=== PATIENT | female | born 2000 | race Native Hawaiian/Other Pacific Islander ===

== ENCOUNTER 2020-11-07 00:08 | Emergency (ER) | payer OTHER ==
[~2020-11-07] VITALS: Ht 172.7 cm; Wt 65.0 kg
[2020-11-07 00:25] LABS: BILIRUBIN,URINE NEGATIVE (NEGATIVE); CLARITY,URINE SL CLOUDY; COLOR,URINE YELLOW; GLUCOSE, URINE (UA) NEGATIVE (NEGATIVE); KETONES,URINE NEGATIVE (NEGATIVE); LEUKOCYTE ESTERASE ,URINE 2+ (NEGATIVE); NITRITE,URINE NEGATIVE (NEGATIVE); PH,URINE 6.5 (5-9); PROTEIN,URINE NEGATIVE (NEGATIVE)
[2020-11-07 00:33] LABS: BACTERIA,URINE FEW /HPF
[2020-11-07] MEDS ORDERED: DOXY100T2 PO (01:00)
[2020-11-07] MEDS ORDERED: LIDOCAINE 1% INJ 20 ML 20 ML VIAL INJ ONE (01:00)
[2020-11-07] MEDS ORDERED: AZITHROMYCIN 250 MG TAB (ZITHROMAX) PO ONE (01:00)
[2020-11-07] MEDS ORDERED: cefTRIAXone 1,000 MG VIAL IM ONE (01:00)
[2020-11-07] MEDS ORDERED: FLUCONAZOLE 150 MG TABLET (ED ONLY) PO ONE (01:00)
[2020-11-07] MEDS ORDERED: FLUC200T PO (01:00)
--- NOTE | 2020-11-07 01:01 | ED GU-Female ---
General Chief Complaint: - Reproductive Stated Complaint: POSS YEAST INFECTION / VAGINAL PAIN Source: patient History of Present Illness Date Seen by Provider: Nov 07, 2020 Time Seen by Provider: 00:18 Initial Comments PT ARRIVES VIA POV PT STATES SHE THINKS SHE HAS A YEAST INFECTION C/O VAGINAL PAIN AND BURNING SINCE Sunday11/05/20 ALSO HAS HAD VAGINAL DISCHARGE--GREEN IN COLOR C/O ALOT OF BURNING ON URINATION SLIGHT LOWER ABDOMINAL DISCOMFORT SLIGHT NAUSEA, NO VOMITING NO DIARRHEA OR CONSTIPATION NO FEVER USED MONISTAT X1 YESTERDAY, NO RELIEF. 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 NO CHRONIC MEDICAL PROBLEMS LMP--NONE, HAS IUD IN PLACE PT IS [employer] STUD[employer] FROM [place], [place] Allergies and Home Medications Allergies Coded Allergies: No Known Drug Allergies (Unverified , 11/07/20) Patient Home Medication List Home Medication List Reviewed: Yes Doxycycline Hyclate (Doxycycline Hyclate) 100 Mg Tablet, 100 MG PO BID Prescribed by: CHAPIS MARTIN on 11/07/20 010 Fluconazole (Diflucan) 200 Mg Tablet, 200 MG PO DAILY Prescribed by: CHAPIS MARTIN on 11/07/20 010 Review of Systems Review of Systems Constitutional: no symptoms reported Respiratory: no symptoms reported Cardiovascular: no symptoms reported Gastrointestinal: see HPI Genitourinary: see HPI : No Musculoskeletal: no symptoms reported Skin: no symptoms reported Psychiatric/Neurological: No Symptoms Reported Endocrine: No Symptoms Reported Hematologic/Lymphatic: No Symptoms Reported Past Bvbamka-Vevpuh-Poqefn Hx Patient Social History Tobacco Use?: No Use of E-Cig and/or Vaping dev: No Substance use?: No Alcohol Use?: Yes Alcohol type: Beer, Hard Liquor, Wine Alcohol Frequency: Several times a month Pt feels they are or have been: No Immunizations Up To Date Influenza Vaccine Up-to-Date: No; Not Current First/Initial COVID19 Vaccinat: 10/19/20 Second COVID19 Vaccination Lorenzo: 11/09 COVID19 Vaccine 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: [employer] Past Medical History Surgery/Hospitalization HX: RIGHT SHOULDER/LABRUM REPAIR LEFT ELBOW/ULNAR COLLATERAL LIGAMENT REPAIR Surgeries: Yes Orthopedic Respiratory: No Cardiac: No Neurological: No Reproductive Disorders: No Genitourinary: No Gastrointestinal: No Musculoskeletal: Yes (RIGHT SHOULDER SURGERY; LEFT ELBOW SURGERY) Endocrine: No HEENT: No Cancer: No Psychosocial: No Integumentary: No Blood Disorders: No Physical Exam Vital Signs Vital Signs - First Documented 11/07/20 00:15 Temp 37.4 Pulse 87 Resp 18 B/P (MAP) 116/89 (98) Pulse Ox 100 O2 Delivery Room Air Capillary Refill : Height, Weight, BMI Height: '" Weight: lbs. oz. kg; BMI Method: General Appearance: WD/WN, no apparent distress Cardiovascular: regular rate, rhythm, no murmur Respiratory: normal breath sounds Gastrointestinal: soft, tenderness (MILD SUPRAPUBIC TENDERNESS) Pelvic: discharge; No lesions, No mass, No tender w/ cervical motion; tender ut erus, other (ERYTHEMA TO INTROITUS, WITH THICK WHITE DISCHARGE AT INTROITUS. VAGINA AND CERVIX VERY INFLAMED, WITH COPIOUS AMOUNT OF THICK , CLUMPY, WHITE AND GREEN AND YELLOW DISCHARGE) Back: normal inspection, no CVA tenderness Extremities: normal inspection Neurologic/Psychiatric: no motor/sensory deficits, alert, normal mood/affect, oriented x 3 Skin: normal color, warm/dry; No rash Progress/Results/Core Measures Suspected Sepsis SIRS Temperature: Pulse: Respiratory Rate: Blood Pressure / Mean: Results/Orders Lab Results Laboratory Tests Test 11/07/20 00:18 11/07/20 00:55 Range/Units Urine Color YELLOW Urine Clarity SL CLOUDY Urine pH 6.5 5-9 Urine Specific [place] 1.015 L 1.016-1.022 Urine Protein NEGATIVE NEGATIVE Urine Glucose (UA) NEGATIVE NEGATIVE Urine Ketones NEGATIVE NEGATIVE Urine Nitrite NEGATIVE NEGATIVE Urine Bilirubin NEGATIVE NEGATIVE Urine Urobilinogen 0.2 < = 1.0 MG/DL Urine Leukocyte Esterase 2+ H NEGATIVE Urine RBC (Auto) NEGATIVE NEGATIVE Urine RBC NONE /HPF Urine WBC 5-10 H /HPF Urine Squamous Epithelial Cells 2-5 /HPF Urine Crystals NONE /LPF Urine Bacteria FEW H /HPF Urine Casts NONE /LPF Urine Mucus LARGE H /LPF Urine Culture Indicated YES My Orders Orders - CHAPIS MARTIN DO Urine Bedside (11/07/20 00:18) Ua Culture If Indicated (11/07/20 00:18) Urine Culture (11/07/20 00:18) Neisseria Gonorrhea Swab (11/07/20 00:46) Chlam Dna Probe (11/07/20 00:46) Genital Culture (11/07/20 00:46) Wet Prep (11/07/20 00:46) Jose Prep (11/07/20 00:46) Fluconazole Tablet (Ed Only) (Diflucan T (11/07/20 01:00) Ceftriaxone (Rocephin) (11/07/20 01:00) Lidocaine 1% Inj 20 Ml (Xylocaine 1% Inj (11/07/20 01:00) Azithromycin Tablet (Zithromax Tablet) (11/07/20 01:00) Medications Given in ED Current Medications Medications Dose Ordered Sig/Hardeep Route Start Time Stop Time Status Last Admin Dose Admin Azithromycin 500 mg ONCE ONCE PO 11/07/20 01:00 11/07/20 01:01 DC 11/07/20 01:08 500 MG Ceftriaxone Sodium 1,000 mg ONCE ONCE IM 11/07/20 01:00 11/07/20 01:01 DC 11/07/20 01:02 1,000 MG Fluconazole 150 mg ONCE ONCE PO 11/07/20 01:00 11/07/20 01:01 DC 11/07/20 01:08 150 MG Lidocaine HCl 2.1 ml ONCE ONCE INJ 11/07/20 01:00 11/07/20 01:01 DC 11/07/20 01:02 2.1 ML Vital Signs/I&O 11/07/20 11/07/20 00:15 01:16 Temp 37.4 Pulse 87 76 Resp 18 18 B/P (MAP) 116/89 (98) 108/74 Pulse Ox 100 100 O2 Delivery Room Air Room Air Capillary Refill : Departure Impression Primary Impression: Vaginitis Additional Impression: UTI (urinary tract infection) Disposition: 01 HOME, SELF-CARE Condition: Stable Departure-Patient Inst. Decision time for Depature: 00:55 Referrals: NO,LOCAL PHYSICIAN (PCP) Primary Care Physician KATHERINE SUMMERS MD Patient Instructions: STD Prevention, Urinary Tract Infection, Adult (DC), Vaginitis Add. Discharge Instructions: TYLENOL AND MOTRIN NEEDED FOR PAIN LOTS OF CLEAR LIQUIDS--NO COFFEE, POP OR TEA NO INTERCOURSE OF ANY KIND UNTIL YOU ARE RECHECKED AND CLEARED BY FOLLOW UP WITH [facility] CLINIC IN 5-7 DAYS FOR RECHECK All discharge instructions reviewed with patient and/or family. Voiced understanding. Scripts Doxycycline Hyclate (Doxycycline Hyclate) 100 Mg Tablet 100 MG PO BID, #20 TAB 0 Refills Prov: CHAPIS MARTIN DO 11/07/20 Fluconazole (Diflucan) 200 Mg Tablet 200 MG PO DAILY, #5 TAB Prov: CHAPIS MARTIN DO 11/07/20 CHAPIS MARTIN DO Nov 07, 2020 01:00
[2020-11-07 01:16] VITALS: BP 108/74
== END 2020-11-07 01:11 | disposition home or self-care (01) ==
LOC: ER 00:13
DX: N76.0 Acute vaginitis (principal); N39.0 Urinary tract infection, site not specified
CPT/HCPCS: 36415; 81000; 84703; 87070; 87088; 87205; 87210; 87220; 87491; 87591; 99284

== ENCOUNTER 2021-03-26 21:30 | Emergency (ER) | payer OTHER ==
[~2021-03-26] VITALS: Ht 172 cm; Wt 63.5 kg
[~2021-03-26 21:30] MED LIST: DOXY100T2 PO; FLUC200T PO
[2021-03-26] MEDS ORDERED: LORazepam INJ 2 MG/ML (ATIVAN) VIAL IVP STA (22:05)
--- NOTE | 2021-03-26 22:11 | ED General ---
General Stated Complaint: ALLERGIC REACTION TO PEANUTE BUTTER Source of Information: Patient, Other (friend) Exam Limitations: No Limitations History of Present Illness Date Seen by Provider: Mar 26, 2021 Time Seen by Provider: 21:58 Initial Comments Patient is a 20-year-old female who presents to the emergency department with a chief complaint of panic/anxiety after eating something that contained peanut butter at about 830 this evening. Patient states that she was able to get it out of her mouth and rinse her mouth however since that time she has felt like her chest is heavy, she feels short of breath. She has had prior allergic reaction back when she was in the eighth grade that required hospitalization. She did not have her EpiPen as their animal attendants and trainers has it in [place]. Patient denies any current rashes although the friend who is present with her at the bedside states that she did get quite red but this resolved. She was given 2 Benadryl prior to arrival. No vomiting. Friend at the bedside states that she "passed out" 3 times since eating the peanut butter. She does have some alcohol on board but cannot quantify how much. She does not appear significantly intoxicated on physical examination. No other complaints of recent illness or injury. She states she has not taken her nightly dose of Lexapro for her anxiety this evening. All other review of systems reviewed and negative except as stated. Timing/Duration: 1-3 Hours Severity: Moderate Associated Systoms: Chest Pain ("heaviness"), Syncope, Weakness Allergies and Home Medications Allergies Coded Allergies: No Known Drug Allergies (Unverified , 11/07/20) Patient Home Medication List Home Medication List Reviewed: Yes Doxycycline Hyclate (Doxycycline Hyclate) 100 Mg Tablet, 100 MG PO BID Prescribed by: CHAPIS MARTIN on 11/07/20 010 Epinephrine (Epipen 2-Jatinder) 0.3 Mg/0.3 Ml Auto.injct, 0.3 MG IJ NEEDED Prescribed by: ADIS HANKINS on 03/26/212213 Fluconazole (Diflucan) 200 Mg Tablet, 200 MG PO DAILY Prescribed by: CHAPIS MARTIN on 11/07/2099 Prednisone (Prednisone) 50 Mg Tab, 50 MG PO DAILY Prescribed by: ADIS HANKINS on 03/26/212213 Review of Systems Review of Systems Constitutional: see HPI, other (anxiety) EENTM: no symptoms reported Respiratory: short of breath Cardiovascular: chest pain ("heaviness") Gastrointestinal: no symptoms reported Genitourinary: no symptoms reported Musculoskeletal: no symptoms reported Skin: rash (currenly resolved) Psychiatric/Neurological: Anxiety All Other Systems Reviewed Negative Unless Noted: Yes Past Twryuuc-Wiujel-Vnjpzi Hx Immunizations Up To Date First/Initial COVID19 Vaccinat: 10/19/20 Second COVID19 Vaccination Lorenzo: 11/09 Past Medical History Surgery/Hospitalization HX: RIGHT SHOULDER/LABRUM REPAIR LEFT ELBOW/ULNAR COLLATERAL LIGAMENT REPAIR Surgeries: Yes Orthopedic Respiratory: No Cardiac: No Neurological: No Reproductive Disorders: No Genitourinary: No Gastrointestinal: No Musculoskeletal: Yes (RIGHT SHOULDER SURGERY; LEFT ELBOW SURGERY) Endocrine: No HEENT: No Cancer: No Psychosocial: No Integumentary: No Blood Disorders: No Physical Exam Vital Signs Vital Signs - First Documented Capillary Refill : Height, Weight, BMI Height: '" Weight: lbs. oz. kg; 21.00 BMI Method: General Appearance: WD/WN, Anxious Eyes: Bilateral Eye Normal Inspection, Bilateral Eye PERRL, Bilateral Eye EOMI, Bilateral Eye Other (injected sclerae) HEENT: PERRL/EOMI, Pharynx Normal, Other (no intraoral swelling) Neck: Full Range of Motion, Normal Inspection, Non Tender, Supple Respiratory: Lungs Clear, Normal Breath Sounds, No Accessory Muscle Use, No Respiratory Distress, Other (labored breathing/slight hyperventilation) Cardiovascular: Regular Rate, Rhythm, Tachycardia (111 bpm) Gastrointestinal: Non Tender, Soft Extremity: Normal Capillary Refill, Normal Inspection, Normal Range of Motion, Non Tender, No Pedal Edema Neurologic/Psychiatric: Alert, Oriented x3, No Motor/Sensory Deficits, Other (anxious) Skin: Normal Color, Warm/Dry Progress/Results/Core Measures Suspected Sepsis SIRS Temperature: Pulse: Respiratory Rate: Blood Pressure / Mean: Results/Orders My Orders Orders - ADIS HANKINS MD Methylprednisolone Sod Succ (Solu-Medrol (03/26/21 22:15) Famotidine Injection (Pepcid Injection) (03/26/21 22:15) Lorazepam Injection (Ativan Injection) (03/26/21 22:05) Medications Given in ED Current Medications Medications Dose Ordered Sig/Haredep Route Start Time Stop Time Status Last Admin Dose Admin Famotidine 20 mg ONCE ONCE IVP 03/26/21 22:15 03/26/21 22:16 DC 03/26/21 22:22 20 MG Methylprednisolone Sodium Succinate 125 mg ONCE ONCE IVP 03/26/21 22:15 03/26/21 22:16 DC 03/26/21 22:20 125 MG Vital Signs/I&O 03/26/21 03/26/21 21:48 21:48 Temp 36.5 Pulse 107 Resp 22 B/P (MAP) 143/110 (121) Pulse Ox 100 O2 Delivery Room Air Room Air Capillary Refill : Progress Note #1: Time: 22:09 Progress Note Patient is obviously anxious, will treat with a half a milligram of Ativan. She will also be given 20 mg of Pepcid and 120 with 5 mg of Solu-Medrol IV. She is already had Benadryl. She is slightly tachycardic, not hypotensive. She is not wheezing or in any respiratory distress. Her oxygen saturations are 99% on room air. Slightly tachycardic at 111. I think about an hour of monitoring and we will be safe to let her go home. We will send her home with some prednisone and a refill of her EpiPen. Progress Note #2: Time: 22:52 Progress Note Patient monitored for approximately an hour after medications. She is feeling better, much more calm. No evolving signs of allergy/anaphylaxis. Sent home with prednisone as well as EpiPen. Return precautions noted. Departure Impression Primary Impression: Allergic reaction to peanut Disposition: 01 HOME, SELF-CARE Condition: Stable Departure-Patient Inst. Decision time for Depature: 22:10 Referrals: NO,LOCAL PHYSICIAN (PCP) Primary Care Physician KATHERINE SUMMERS MD Patient Instructions: Peanut Allergy Add. Discharge Instructions: Take the prednisone daily for the next 3 days. You should also take [id number] Pepcid, 20 mg once a day for the next 3 days. This is available at [employer] or [employer]. If you have a recurrence of any concerning symptoms you can take more Benadryl. 1 to 2 tablets every 6 hours If you notice that you have mouth swelling, increasing shortness of breath or other concerning symptoms please come back to the emergency department for reevaluation. I have also refilled your EpiPen. Scripts Epinephrine (Epipen 2-Jatinder) 0.3 Mg/0.3 Ml Auto.injct 0.3 MG IJ NEEDED PRN for allergic reaction, #1 ML Prov: ADIS HANKINS MD 03/26/21 Prednisone (Prednisone) 50 Mg Tab 50 MG PO DAILY for 3 Days, #3 TAB Prov: ADIS HANKINS MD 03/26/21 ADIS HANKINS MD Mar 26, 2021 22:11
[2021-03-26] MEDS ORDERED: PRD50T PO ×2 (22:14→23:10)
[2021-03-26] MEDS ORDERED: EPIN0.3P3 IJ ×2 (22:14→23:10)
[2021-03-26] MEDS ORDERED: FAMOTIDINE 20MG/2ML IV (PEPCID) IVP ONE (22:15)
[2021-03-26] MEDS ORDERED: methylPREDNISolone 125 MG (Solu-MEDROL) VIAL IVP ONE (22:15)
[2021-03-26 23:12] VITALS: BP 125/61
== END 2021-03-26 23:12 | disposition home or self-care (01) ==
LOC: EDUNIT# 21:30 → ER 21:34
DX: T78.1XXA Other adverse food reactions, not elsewhere classified, initial encounter (principal)

== ENCOUNTER 2021-12-15 18:57 | Emergency (ER) | payer OTHER ==
[~2021-12-15 18:57] MED LIST changes: +EPIN0.3P3 IJ; +PRD50T PO
--- NOTE | 2021-12-15 19:22 | ED Lower Extremity ---
General Chief Complaint: Lower Extremity Stated Complaint: [place] AT [place] [facility] Nursing Triage Note: PT ARRIVAL TO ER VIA PRIVATE VEHICLE WITH COMPLAINT OF LOWER RIGHT LEG INJURY. 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 SWELLING AND BRUISING PRESENT. PAINFUL WITH WALKING AND AT REST. PAIN AT A 5/10. DESCRIBED UNCOMFORTABLE PAIN. (FIONA BELL APRN) History of Present Illness Date Seen by Provider: Dec 15, 2021 Time Seen by Provider: 19:17 Initial Comments Patient presents to the emergency department for right lower leg pain and injury. Reports that she was batting today at practice and hit a ball and it immediately hit her in the right lower leg. C/O swelling, bruising and pain to the area since that time. Has had difficulty walking on right lower extremity due to the pain. Denies any other injuries. Took Ibuprofen about hour and half prior to arrival. Onset: just prior to arrival Pain/Injury Location: right leg (right anterior lower leg) Method of Injury: direct blow Modifying Factors: Improves With Cold Therapy, Improves With Immobilization; Worse With Movement; Improves With Rest (FIONA BELL APRN) Allergies and Home Medications Allergies Coded Allergies: No Known Drug Allergies (Unverified , 11/07/20) Patient Home Medication List Home Medication List Reviewed: Yes (FIONA BELL APRN) Doxycycline Hyclate (Doxycycline Hyclate) 100 Mg Tablet, 100 MG PO BID Prescribed by: CHAPIS MARTIN on 11/07/2099 Epinephrine (Epipen 2-Jatinder) 0.3 Mg/0.3 Ml Auto.injct, 0.3 MG IJ NEEDED PRN for allergic reaction Prescribed by: ADIS HANKINS on 03/26/212309 Fluconazole (Diflucan) 200 Mg Tablet, 200 MG PO DAILY Prescribed by: CHAPIS MARTIN on 11/07/2099 Hydrocodone Bit/Acetaminophen (HYDROcodone/APAP 5 MG/325 MG TAB) 1 Tab Tab, 1 TAB PO Q6H Prescribed by: Fiona Bell on 12/15/212010 Prednisone (Prednisone) 50 Mg Tab, 50 MG PO DAILY Prescribed by: ADIS HANKINS on 03/26/212309 Review of Systems Constitutional: no symptoms reported Respiratory: no symptoms reported Cardiovascular: no symptoms reported Gastrointestinal: no symptoms reported Musculoskeletal: joint pain (right lower extremity), joint swelling (right lower extremity) Skin: other (bruising to right lower extremity) (FIONA BELL APRN) All Other Systems Reviewed Negative Unless Noted: Yes (FIONA BELL APRN) Past Lvletgj-Vwzmsy-Yssyzp Hx Patient Social History Tobacco Use?: No Use of E-Cig and/or Vaping dev: No Substance use?: No Alcohol Use?: Yes Alcohol type: Beer, Hard Liquor Alcohol Frequency: Several times a month Pt feels they are or have been: No (FIONA BELL APRN) Immunizations Up To Date Influenza Vaccine Up-to-Date: Yes; Up-to-Date First/Initial COVID19 Vaccinat: 10/19/2020 Second COVID19 Vaccination Lorenzo: 09/08 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 SURGICAL;ACL SURGERY 02/07. Surgeries: Yes Orthopedic Respiratory: No Cardiac: No Neurological: No Reproductive Disorders: No Genitourinary: No Gastrointestinal: No Musculoskeletal: Yes (RIGHT SHOULDER SURGERY; LEFT ELBOW SURGERY) Endocrine: No HEENT: No Cancer: No Psychosocial: No Integumentary: No Blood Disorders: No (FIONA BELL APRN) Family Medical History Reviewed Nursing Family Hx (FIONA BELL APRN) Physical Exam Vital Signs Vital Signs - First Documented 12/15/21 19:11 Temp 37.0 Pulse 83 Resp 16 B/P (MAP) 152/80 (104) Pulse Ox 100 O2 Delivery Room Air (LISA CRUM MD) Vital Signs Capillary Refill : Less Than 3 Seconds (FIONA BELL APRN) Height, Weight, BMI Height: '" Weight: lbs. oz. kg; 21.00 BMI Method: General Appearance: WD/WN, no apparent distress Legs: right leg bone tenderness, right leg ecchymosis, right leg pain, right leg soft tissue tenderness, right leg swelling (right lower anterior leg) Ankles: right ankle non-tender, right ankle normal inspection, right ankle normal range of motion Neurologic/Psychiatric: alert, normal mood/affect, oriented x 3 Skin: warm/dry, ecchymosis (right lower anterior leg just superior to the ankle) (FIONA BELL APRN) Progress/Results/Core Measures Results/Orders Vital Signs/I&O 12/15/21 12/15/21 12/15/21 19:11 19:28 20:27 Temp 37.0 37.0 37.0 Pulse 83 83 Resp 16 16 B/P (MAP) 152/80 (104) 152/80 Pulse Ox 100 100 O2 Delivery Room Air Room Air (LISA CRUM MD) Blood Pressure Mean: 104 Progress Progress Note : Progress Note Patient arrives to department with obvious injury to right lower leg. Limping, bruising and swelling. Will obtain XR. 2004: XR was negative for fracture. Will send home with Hydrocodone to take as needed for pain. Narcotic warning instructions were discussed with patient along with reasons to return to the ER. Crutches were given to assist with ambulation. (FIONA BELL APRN) Diagnostic Imaging Diagonstic Imaging: Xray Plain Films/CT/US/NM/MRI: leg Comments NAME: VALERIA FISHER [facility] REC#: [id number] PT STATUS: REG ER : 2000 PHYSICIAN: FIONA BELL APRN ADMIT DATE: 12/15/21/ER Signed Date of Exam:12/15/21 TIBIA/FIBULA, RIGHT, 2 VIEWS INDICATION: Right lower leg pain. Hit by a softball. FINDINGS: There is no finding of cortical disruption or fracture. There is no suspicious bone lesion. There is no focal soft tissue abnormality evident. IMPRESSION: Negative radiographs of the right lower leg. Dictated by: Dictated on workstation # [id number] Dict: 12/15/211945 Trans: 12/15/211952 [facility] [id number] Interpreted by: BHAVESH MAX MD Electronically signed by: BHAVESH MAX MD 12/15/211952 (FIONA BELL APRN) Departure Impression Primary Impression: Contusion of leg, right Qualified Codes: S80.11XA - Contusion of right lower leg, initial encounter Disposition: 01 HOME, SELF-CARE Condition: Stable Departure-Patient Inst. Decision time for Depature: 20:09 (FIONA BELL APRN) Referrals: NO,LOCAL PHYSICIAN (PCP/Family) Primary Care Physician Patient Instructions: Contusion (DC) Add. Discharge Instructions: 1. Home and rest. 2. Push fluids. 3. Alternate Tylenol/Ibuprofen as needed for pain. 4. Hydrocodone as needed for severe pain. This medication can cause constipation so consider taking a stool softner while on this medication. NO driving while taking this medication. 5. Follow up with PCP as needed. 6. Weight bearing as tolerated. 7. Ice and elevate. 8. Return here if worse or concerns. All discharge instructions reviewed with patient and/or family. Voiced understanding. Scripts Hydrocodone Bit/Acetaminophen (HYDROcodone/APAP 5 MG/325 MG TAB) 1 Tab Tab 1 TAB PO Q6H for Pain, #10 TAB 0 Refills Prov: FIONA BELL APRN 12/15/21 ATTENDING PHYSICIAN NOTE: I was physically present as attending physician in the emergency department during the care of this patient, but I was not directly involved in the decision making or delivery of care for this patient. (LISA CRUM MD) FIONA BELL APRN Dec 15, 2021 19:22 LISA CRUM MD Dec 17, 2021 09:24
[2021-12-15] MEDS ORDERED: HYDROcodone/APAP 5 MG/325 MG (LORTAB) TAB PO ONE (19:30)
--- NOTE | 2021-12-15 19:50 | Diagnostic Imaging Report ---
INDICATION: Right lower leg pain. Hit by a softball. FINDINGS: There is no finding of cortical disruption or fracture. There is no suspicious bone lesion. There is no focal soft tissue abnormality evident. IMPRESSION: Negative radiographs of the right lower leg. Dictated by: Dictated on workstation # [id number]
[2021-12-15] MEDS ORDERED: ACHD5005 PO (20:11)
[2021-12-15 20:27] VITALS: BP 152/80
== END 2021-12-15 20:27 | disposition home or self-care (01) ==
LOC: EDUNIT# 18:57 → ER 18:59
DX: S80.11XA Contusion of right lower leg, initial encounter (principal); W21.07XA Struck by softball, initial encounter; Y93.64 Activity, baseball
CPT/HCPCS: 73590

== ENCOUNTER 2022-10-16 21:03 | Emergency (ER) | payer OTHER ==
[~2022-10-16] VITALS: Ht 172 cm; Wt 61.0 kg
[~2022-10-16 21:03] MED LIST changes: +ACHD5005 PO
[2022-10-16] MEDS ORDERED: ONDANSETRON INJECTION 4 MG/2 ML (SDV) IVP ONE (21:30)
[2022-10-16] MEDS ORDERED: LACTATED RINGERS 1,000 ML 1,000 ML IV ONE (21:30)
[2022-10-16 21:33] LABS: BASOPHILS # (AUTO) 0.1 10^3/uL (0.0-0.1); BASOPHILS % (AUTO) 1 % (0-10); EOSINOPHILS # (AUTO) 0.4 10^3/uL (0.0-0.3); EOSINOPHILS % (AUTO) 6 % (0-10); HEMATOCRIT 38 % (35-52); HEMOGLOBIN 12.9 g/dL (11.5-16.0); LYMPHOCYTES # (AUTO) 2.6 10^3/uL (1.0-4.0); LYMPHOCYTES % (AUTO) 35 % (12-44); MEAN CORPUSCULAR HEMOGLOBIN 30 pg (25-34); MEAN CORPUSCULAR HGB CONC 34 g/dL (32-36); MEAN CORPUSCULAR VOLUME 87 fL (80-99); MEAN PLATELET VOLUME 11.1 fL (9.0-12.2); MONOCYTES # (AUTO) 0.6 10^3/uL (0.0-1.0); MONOCYTES % (AUTO) 8 % (0-12); NEUTROPHILS # (AUTO) 3.7 10^3/uL (1.8-7.8); NEUTROPHILS % (AUTO) 50 % (42-75); PLATELET COUNT 187 10^3/uL (130-400); WHITE BLOOD COUNT 7.4 10^3/uL (4.3-11.0)
[2022-10-16 21:37] VITALS: BP_SYST 123; BP_SYST 130; BP_SYST 142; BP_DIAS 78; BP_DIAS 93; BP_DIAS 97
[2022-10-16 21:50] LABS: BACTERIA,URINE FEW /HPF; BILIRUBIN,URINE NEGATIVE (NEGATIVE); CLARITY,URINE CLEAR; COLOR,URINE YELLOW; GLUCOSE, URINE (UA) NEGATIVE (NEGATIVE); KETONES,URINE NEGATIVE (NEGATIVE); LEUKOCYTE ESTERASE ,URINE TRACE (NEGATIVE); NITRITE,URINE NEGATIVE (NEGATIVE); PH,URINE 5.5 (5-9); PROTEIN,URINE NEGATIVE (NEGATIVE); RBC,URINE RARE /HPF; WBC,URINE RARE /HPF
[2022-10-16 22:03] LABS: AMPHETAMINE SCREEN, URINE NEGATIVE (NEGATIVE); BARBITURATE SCREEN URINE NEGATIVE (NEGATIVE); BENZODIAZEPINES SCREEN URINE NEGATIVE (NEGATIVE); CANNABINOID SCREEN, URINE NEGATIVE (NEGATIVE); COCAINE SCREEN URINE NEGATIVE (NEGATIVE); METHADONE STAT NEGATIVE (NEGATIVE); OPIATE SCREEN URINE NEGATIVE (NEGATIVE); OXYCODONE STAT NEGATIVE (NEGATIVE); PROPOXYPHENE STAT NEGATIVE (NEGATIVE); TRICYCLIC ANTIDEPRESSANTS SCRE NEGATIVE (NEGATIVE)
[2022-10-16 22:04] LABS: ALANINE AMINOTRANSFERASE 19 U/L (0-55); ALBUMIN 4.5 GM/DL (3.2-4.5); ALKALINE PHOSPHATASE 99 U/L (40-136); BILIRUBIN,TOTAL 0.3 MG/DL (0.1-1.0); BUN/CREATININE RATIO 18; CALCIUM 8.9 MG/DL (8.5-10.1); CARBON DIOXIDE 21 MMOL/L (21-32); CHLORIDE 106 MMOL/L (98-107); GFR ESTIMATED 107; GLUCOSE 88 MG/DL (70-105); MAGNESIUM 2.1 MG/DL (1.6-2.4); POTASSIUM 3.5 MMOL/L (3.6-5.0); SODIUM 139 MMOL/L (135-145)
[2022-10-16 22:24] LABS: TSH (THYROID ANALYZER) 3.58 UIU/ML (0.35-4.94)
--- NOTE | 2022-10-16 22:59 | ED Syncope ---
General Chief Complaint: Dizziness/Syncope Stated Complaint: FALL/HIT HEAD Nursing Triage Note: PT STATES SHE PASSED OUT AROUND 2019, STATES SHE FELT HERSELF GETTING DIZZY AND LEANED ON THE WALL, FELL AND HIT HEAD ON FLOOR. Source of Information: Patient Allergies and Home Medications Allergies Coded Allergies: No Known Drug Allergies (Unverified , 11/07/20) Patient Home Medication List Doxycycline Hyclate (Doxycycline Hyclate) 100 Mg Tablet, 100 MG PO BID Prescribed by: CHAPIS MARTIN on 11/07/2099 Epinephrine (Epipen 2-Jatinder) 0.3 Mg/0.3 Ml Auto.injct, 0.3 MG IJ NEEDED PRN for allergic reaction Prescribed by: ADIS HANKINS on 03/26/212309 Fluconazole (Diflucan) 200 Mg Tablet, 200 MG PO DAILY Prescribed by: CHAPIS MARTIN on 11/07/2099 Hydrocodone Bit/Acetaminophen (HYDROcodone/APAP 5 MG/325 MG TAB) 1 Tab Tab, 1 TAB PO Q6H Prescribed by: Fiona Ambrocio on 12/15/212010 Prednisone (Prednisone) 50 Mg Tab, 50 MG PO DAILY Prescribed by: ADIS HANKINS on 03/26/212309 Past Eixwwqr-Vqzata-Oqvsxa Hx Patient Social History Tobacco Use?: No Substance use?: No Alcohol Use?: Yes Alcohol Frequency: Once in a while Immunizations Up To Date First/Initial COVID19 Vaccinat: 09/08 Second COVID19 Vaccination Lorenzo: 09/08 Third COVID19 Vaccination Date: 09/08 Past Medical History Surgery/Hospitalization HX: PMH;ANXIETY. SURGICAL;ACL SURGERY 02/07. Surgeries: Yes Orthopedic Respiratory: No Cardiac: No Neurological: No Reproductive Disorders: No Genitourinary: No Gastrointestinal: No Musculoskeletal: Yes (RIGHT SHOULDER SURGERY; LEFT ELBOW SURGERY) Endocrine: No HEENT: No Cancer: No Psychosocial: No Integumentary: No Blood Disorders: No Physical Exam Vital Signs Vital Signs - First Documented 10/16/22 21:14 Temp 37.6 Pulse 88 Resp 18 B/P (MAP) 137/86 (103) Pulse Ox 99 Capillary Refill : Height, Weight, BMI Height: '" Weight: lbs. oz. kg; 20.00 BMI Method: Progress/Results/Core Measures Results/Orders Lab Results Laboratory Tests Test 10/16/22 21:21 10/16/22 21:28 10/16/22 21:50 Range/Units Urine Color YELLOW Urine Clarity CLEAR Urine pH 5.5 5-9 Urine Specific Berry 1.015 L 1.016-1.022 Urine Protein NEGATIVE NEGATIVE Urine Glucose (UA) NEGATIVE NEGATIVE Urine Ketones NEGATIVE NEGATIVE Urine Nitrite NEGATIVE NEGATIVE Urine Bilirubin NEGATIVE NEGATIVE Urine Urobilinogen 0.2 < = 1.0 MG/DL Urine Leukocyte Esterase TRACE H NEGATIVE Urine RBC (Auto) TRACE H NEGATIVE Urine RBC RARE /HPF Urine WBC RARE /HPF Urine Squamous Epithelial Cells 5-10 /HPF Urine Crystals NONE /LPF Urine Bacteria FEW H /HPF Urine Casts NONE /LPF Urine Mucus SMALL H /LPF Urine Culture Indicated NO Urine Opiates Screen NEGATIVE NEGATIVE Urine Oxycodone Screen NEGATIVE NEGATIVE Urine Methadone Screen NEGATIVE NEGATIVE Urine Propoxyphene Screen NEGATIVE NEGATIVE Urine Barbiturates Screen NEGATIVE NEGATIVE Ur Tricyclic Antidepressants Screen NEGATIVE NEGATIVE Urine Phencyclidine Screen NEGATIVE NEGATIVE Urine Amphetamines Screen NEGATIVE NEGATIVE Urine Methamphetamines Screen NEGATIVE NEGATIVE Urine Benzodiazepines Screen NEGATIVE NEGATIVE Urine Cocaine Screen NEGATIVE NEGATIVE Urine Cannabinoids Screen NEGATIVE NEGATIVE White Blood Count 7.4 4.3-11.0 10^3/uL Red Blood Count 4.36 3.80-5.11 10^6/uL Hemoglobin 12.9 11.5-16.0 g/dL Hematocrit 38 35-52 % Mean Corpuscular Volume 87 80-99 fL Mean Corpuscular Hemoglobin 30 25-34 pg Mean Corpuscular Hemoglobin Concent 34 32-36 g/dL Red Cell Distribution Width 12.6 10.0-14.5 % Platelet Count 187 130-400 10^3/uL Mean Platelet Volume 11.1 9.0-12.2 fL Immature Granulocyte % (Auto) 0 % Neutrophils (%) (Auto) 50 42-75 % Lymphocytes (%) (Auto) 35 12-44 % Monocytes (%) (Auto) 8 0-12 % Eosinophils (%) (Auto) 6 0-10 % Basophils (%) (Auto) 1 0-10 % Neutrophils # (Auto) 3.7 1.8-7.8 10^3/uL Lymphocytes # (Auto) 2.6 1.0-4.0 10^3/uL Monocytes # (Auto) 0.6 0.0-1.0 10^3/uL Eosinophils # (Auto) 0.4 H 0.0-0.3 10^3/uL Basophils # (Auto) 0.1 0.0-0.1 10^3/uL Immature Granulocyte # (Auto) 0.0 0.0-0.1 10^3/uL Sodium Level 139 135-145 MMOL/L Potassium Level 3.5 L 3.6-5.0 MMOL/L Chloride Level 106 98-107 MMOL/L Carbon Dioxide Level 21 21-32 MMOL/L Anion Gap 12 5-14 MMOL/L Blood Urea Nitrogen 14 7-18 MG/DL Creatinine 0.80 0.60-1.30 MG/DL Estimat Glomerular Filtration Rate 107 BUN/Creatinine Ratio 18 Glucose Level 88 70-105 MG/DL Calcium Level 8.9 8.5-10.1 MG/DL Corrected Calcium 8.5 8.5-10.1 MG/DL Magnesium Level 2.1 1.6-2.4 MG/DL Total Bilirubin 0.3 0.1-1.0 MG/DL Aspartate Amino Transf (AST/SGOT) 37 H 5-34 U/L Alanine Aminotransferase (ALT/SGPT) 19 0-55 U/L Alkaline Phosphatase 99 40-136 U/L Total Protein 7.0 6.4-8.2 GM/DL Albumin 4.5 3.2-4.5 GM/DL TSH [place] Testing 3.58 0.35-4.94 UIU/ML Serum Test, Qualitative NEGATIVE NEGATIVE Serum Alcohol < 10 <10 MG/DL Glucometer 96 70-110 MG/DL My Orders Orders - CHAPIS MARTIN DO Accucheck Stat ONCE (10/16/22 21:18) Ed Iv/Invasive Line Start (10/16/22 21:18) Urine Bedside (10/16/22 21:18) Ekg Tracing (10/16/22 21:18) Monitor-Rhythm Ecg Trace Only (10/16/22 21:18) Ct Head Wo (10/16/22 21:18) Alcohol (10/16/22 21:18) Cbc With Automated Diff (10/16/22 21:18) Comprehensive Metabolic Panel (10/16/22 21:18) Drug Screen Stat (Urine) (10/16/22 21:18) Magnesium (10/16/22 21:18) Thyroid Analyzer (10/16/22 21:18) Ua Culture If Indicated (10/16/22 21:18) Ed Iv/Invasive Line Start (10/16/22 21:18) Lactated Ringers 1,000 Ml (Lactated Ring (10/16/22 21:30) Orthostatic Vital Signs (Adult (10/16/22 21:18) Hcg,Qualitative Serum (10/16/22 21:28) Ondansetron Injection (Ondansetron Inj (10/16/22 21:30) Ekg Tracing (10/16/22 22:55) Medications Given in ED Current Medications Medications Dose Ordered Sig/Hardeep Route Start Time Stop Time Status Last Admin Dose Admin Lactated Ringer's 1,000 ml @ 0 mls/hr Q0M ONCE IV 10/16/22 21:30 10/16/22 21:31 DC 10/16/22 21:35 999 MLS/HR Ondansetron HCl 4 mg ONCE ONCE IVP 10/16/22 21:30 10/16/22 21:31 DC 10/16/22 21:35 4 MG Vital Signs/I&O 10/16/22 10/16/22 21:14 21:37 Temp 37.6 Pulse 88 86 97 103 Resp 18 B/P (MAP) 137/86 (103) 123/78 (93) 130/97 (108) 142/93 (109) Pulse Ox 99 Blood Pressure Mean: 109 [facility] Bedside Testing Finger Stick Blood Glucose: 96 Blood Glucose Action Taken: RN NOTIFIED Departure Impression Primary Impression: Syncope Disposition: 01 HOME, SELF-CARE Condition: Stable Departure-Patient Inst. Decision time for Depature: 22:58 Referrals: NO,LOCAL PHYSICIAN (PCP) Primary Care Physician KATHERINE SUMMERS MD Patient Instructions: Syncope (Fainting) (DC) Add. Discharge Instructions: HOME, REST INCREASE YOUR FLUID INTAKE NO DRIVING UNTIL YOU ARE RECHECKED AND CLEARED FOLLOW UP WITH [facility] TOMORROW OR YOUR REGULAR DR RETURN TO ER IF YOUR SYMPTOMS WORSEN All discharge instructions reviewed with patient and/or family. Voiced understanding. CHAPIS MARTIN DO Oct 16, 2022 22:58
[2022-10-16 23:26] VITALS: BP 140/103
--- NOTE | 2022-10-17 04:46 | Diagnostic Imaging Report ---
PROCEDURE: CT head without contrast. TECHNIQUE: Multiple contiguous axial images were obtained through the brain without the use of intravenous contrast. Auto Exposure Controls were utilized during the CT exam to meet ALARA standards for radiation dose reduction. INDICATION: Dizziness with syncopal episodes, injured head after hitting floor. COMPARISONS: None FINDINGS: The midline structures are not displaced. Lateral, 3rd, and 4th ventricles are normal in size, shape and anatomic position. There is no mass, mass effect, hydrocephalus or hemorrhage. Sebastian-white differentiation is normal. There is no sulcal effacement. There are no abnormal extra-axial fluid collections or hemorrhage. Basilar cisterns appear normal. Sinuses, orbits, and mastoid air cells are unremarkable. Bone windows show no calvarial changes. IMPRESSION: Unremarkable nonenhanced CT brain. Agree with [facility] report. Dictated by: Dictated on workstation # [id number]
== END 2022-10-16 23:22 | disposition home or self-care (01) ==
LOC: EDUNIT# 21:03 → ER 21:06
DX: R55 Syncope and collapse (principal); W18.30XA Fall on same level, unspecified, initial encounter; W22.8XXA Striking against or struck by other objects, initial encounter
CPT/HCPCS: 70450; 80053; 80306; 81000; 82947; 83735; 84443; 84703; 85025; 93005; 93041; 99284; G0480; 36415; 80320